=== PATIENT | male | born 1980 | race Caucasian/White ===

== ENCOUNTER 2017-04-24 17:21 | Emergency (ER) | payer SELFPAY ==
[~2017-04-24] VITALS: Ht 172.7 cm; Wt 90.9 kg
[~2017-04-24 17:21] MED LIST: ACETAMINOPHEN W1 TA6 PO; ADVIL 200MG TA200 MG PO; AMOXICILLIN 50500 MG PO; ATIVAN1 MG PO; BENICAR HCT 251 TAB PO; CELEBREX; CEPHALEXIN500 M1 PO; CYMBALTA; CYMBALTA60 M1 PO; FLAGYL500 MG PO; FLEXERIL 1010 MG/TAB PO; FLEXERIL10 MG PO; LIORESAL 1010 MG/TAB PO; LORTAB 5/500 501 TAB PO; LORTAB 7.5/5001 TAB PO; NAPROSYN500 MG PO; NO HOME MEDICATIONS; NORCO 325 MG-51 TAB PO; NORCO 325 MG-7.1 TAB PO; PEN-VEE K250 MG PO; PENICILLIN V500 MG PO; PENICILLIN VK250 MG PO; PERCOCET 325 MG1 TA2 PO; SEPTRA DS 8001 TAB PO; ULTRAM 50MG TAB50 MG PO; ULTRAM ER100 MG PO; ULTRAM100 MG PO; ULTRAM50 MG PO; VICODIN 5/5001 UDTAB PO; XANAX 0.5MG0.5 MG PO; XANAX 1MG1 MG PO; XANAX0.25 MG PO; XANAX1 MG PO; [UNRECOGNIZED DRUG - OTHER]
[2017-04-24 17:23] VITALS: TEMP 97.8
[2017-04-24] MEDS ORDERED: LIORESAL 1010 MG/TAB PO (17:26)
[2017-04-24] MEDS ORDERED: ULTRAM 50MG TAB50 MG PO (19:52)
[2017-04-24 20:16] VITALS: BP 135/89; PULSE 65
== END 2017-04-24 20:13 | disposition home or self-care (01) ==
LOC: COL.ER 17:21
DX: S83.91XA Sprain of unspecified site of right knee, initial encounter (principal); W19.XXXA Unspecified fall, initial encounter; Y92.000 Kitchen of unspecified non-institutional (private) residence as the place of occurrence of the external cause

== ENCOUNTER 2019-07-07 08:49 | Emergency (ER) | payer SELFPAY ==
[~2019-07-07] VITALS: Ht 170.2 cm; Wt 90.9 kg
[2019-07-07 09:35] VITALS: BP 156/85; PULSE 68; TEMP 97.8
== END 2019-07-07 09:35 | disposition home or self-care (01) ==
LOC: COL.ER 08:49
DX: S83.91XA Sprain of unspecified site of right knee, initial encounter (principal); X50.1XXA Overexertion from prolonged static or awkward postures, initial encounter
CPT/HCPCS: L1846

== ENCOUNTER 2019-07-15 17:07 | Emergency (ER) | payer SELFPAY ==
[~2019-07-15] VITALS: Ht 170.2 cm; Wt 90.9 kg
[2019-07-15 17:19] VITALS: BP 145/87; TEMP 97.8
[2019-07-15 18:36] VITALS: PULSE 86
== END 2019-07-15 18:37 | disposition home or self-care (01) ==
LOC: COL.ER 17:07
DX: S83.91XA Sprain of unspecified site of right knee, initial encounter (principal); F41.9 Anxiety disorder, unspecified; F17.210 Nicotine dependence, cigarettes, uncomplicated; Z88.4 Allergy status to anesthetic agent; X50.1XXA Overexertion from prolonged static or awkward postures, initial encounter

== ENCOUNTER 2019-07-30 15:28 | Emergency (ER) | payer SELFPAY ==
[~2019-07-30] VITALS: Ht 170.2 cm; Wt 90.9 kg
[2019-07-30] MEDS ORDERED: NORVASC 10MG10 MG PO (15:40)
[2019-07-30] MEDS ORDERED: LIDODERM 5% PATC1 EA TP (15:52)
[2019-07-30] MEDS ORDERED: FLEXERIL 1010 MG/TAB PO ×3 (15:52→17:33)
[2019-07-30] MEDS ORDERED: PREDNISONE20 MG PO (17:28)
[2019-07-30 17:50] VITALS: BP 133/80; PULSE 69; TEMP 98.2
== END 2019-07-30 17:50 | disposition home or self-care (01) ==
LOC: COL.ER 15:28
DX: R07.89 Other chest pain (principal); I10 Essential (primary) hypertension; F17.210 Nicotine dependence, cigarettes, uncomplicated
CPT/HCPCS: J7512

== ENCOUNTER 2019-08-07 22:55 | Emergency (ER) | payer SELFPAY ==
[~2019-08-07] VITALS: Wt 90.9 kg
[~2019-08-07 22:55] MED LIST changes: +LIDODERM 5% PATC1 EA TP; +NORVASC 10MG10 MG PO; +PREDNISONE20 MG PO
[2019-08-07 23:15] VITALS: BP 138/84; PULSE 78; TEMP 98.4
== END 2019-08-07 23:45 | disposition left against medical advice (07) ==
LOC: COL.ER 22:55
DX: R06.02 Shortness of breath (principal)

== ENCOUNTER 2019-08-10 17:37 | Emergency (ER) | payer SELFPAY ==
[~2019-08-10] VITALS: Ht 170.2 cm; Wt 90.9 kg
[2019-08-10 17:54] VITALS: TEMP 98.5
[2019-08-10] MEDS ORDERED: ATARAX 25MG25 MG/TAB PO (19:20)
[2019-08-10] MEDS ORDERED: ATIVAN 0.50.5 MG/TAB PO (19:21)
[2019-08-10 19:45] VITALS: BP 139/84; PULSE 81
== END 2019-08-10 19:45 | disposition home or self-care (01) ==
LOC: COL.ER 17:37
DX: F41.0 Panic disorder [episodic paroxysmal anxiety] (principal); I10 Essential (primary) hypertension; F32.9 Major depressive disorder, single episode, unspecified; F43.10 Post-traumatic stress disorder, unspecified; F17.210 Nicotine dependence, cigarettes, uncomplicated

== ENCOUNTER 2019-08-12 12:51 | Emergency (ER) | payer SELFPAY ==
[~2019-08-12] VITALS: Ht 170.2 cm; Wt 90.9 kg
[~2019-08-12 12:51] MED LIST changes: +ATARAX 25MG25 MG/TAB PO; +ATIVAN 0.50.5 MG/TAB PO
[2019-08-12 12:57] VITALS: BP 130/91; TEMP 98.7
[2019-08-12] MEDS ORDERED: VISTARIL 2525 MG/CAP PO (13:41)
[2019-08-12 13:57] VITALS: PULSE 82
== END 2019-08-12 13:57 | disposition home or self-care (01) ==
LOC: COL.ER 12:51
DX: F41.9 Anxiety disorder, unspecified (principal); F17.210 Nicotine dependence, cigarettes, uncomplicated

== ENCOUNTER 2019-08-22 21:41 | Emergency (ER) | payer SELFPAY ==
[~2019-08-22] VITALS: Ht 170.2 cm; Wt 90.9 kg
[~2019-08-22 21:41] MED LIST changes: +VISTARIL 2525 MG/CAP PO
[2019-08-22 21:47] VITALS: BP 137/88; TEMP 98.3
[2019-08-22 22:33] VITALS: PULSE 68
== END 2019-08-22 22:33 | disposition home or self-care (01) ==
LOC: COL.ER 21:41
DX: F41.9 Anxiety disorder, unspecified (principal); F41.0 Panic disorder [episodic paroxysmal anxiety]

== ENCOUNTER 2019-09-05 16:06 | Emergency (ER) | payer SELFPAY ==
[~2019-09-05] VITALS: Ht 170.2 cm; Wt 90.9 kg
[2019-09-05 16:08] VITALS: BP 138/82; PULSE 80; TEMP 98.3
[2019-09-05 16:50] LABS: BASO # 0.1 (0.0-0.2); BASO % 0.7 % (0.0-2.0); EOS # 0.3 (0.0-0.7); EOS % 4.1 % (0-4.0); GRAN % 60.4 % (42.2-75.2); HEMATOCRIT 44.5 % (42.0-52.0); HEMOGLOBIN 15.4 g/dl (13.5-18.0); LYMPH # 2.3 (1.2-3.4); LYMPH % 26.9 % (20.0-51.0); MEAN CELL VOLUME 91 fl (80.0-100.0); MEAN CORPUSCULAR HEMOGLOBIN 32 pg (27.0-31.0); MEAN CORPUSCULAR HGB CONC 35 g/dl (33.0-37.0); MEAN PLATELET VOLUME 10.7 fl (7.4-10.4); MONO # 0.6 (0.1-0.6); MONO % 7.5 % (1.7-9.3); PLATELET COUNT 214 K/mm3 (130-400); RED BLOOD COUNT 4.87 M/mm3 (4.20-5.60); REDCELL DISTRIBUTION WIDTH-CV 12.7 % (11.5-14.5)
[2019-09-05 17:15] LABS: ERYTHROCYTE SEDIMENTATION RATE 1 mm/hr (0-15)
== END 2019-09-05 17:42 | disposition home or self-care (01) ==
LOC: COL.ER 16:06
PROVIDERS: Family Medicine
DX: S76.012A Strain of muscle, fascia and tendon of left hip, initial encounter (principal); I10 Essential (primary) hypertension; F41.9 Anxiety disorder, unspecified; X50.9XXA Other and unspecified overexertion or strenuous movements or postures, initial encounter

== ENCOUNTER 2019-09-22 22:19 | Emergency (ER) | payer SELFPAY ==
[~2019-09-22] VITALS: Ht 170.2 cm; Wt 90.9 kg
[2019-09-22 22:27] VITALS: BP 167/86; TEMP 98.2
[2019-09-22] MEDS ORDERED: ULTRAM 50MG TAB50 MG PO (23:29)
[2019-09-22 23:38] VITALS: PULSE 70
== END 2019-09-22 23:38 | disposition home or self-care (01) ==
LOC: COL.ER 22:19
DX: M25.512 Pain in left shoulder (principal); Z87.828 Personal history of other (healed) physical injury and trauma; X50.0XXA Overexertion from strenuous movement or load, initial encounter

== ENCOUNTER 2019-09-29 12:19 | Emergency (ER) | payer SELFPAY ==
[~2019-09-29] VITALS: Ht 170.2 cm; Wt 90.9 kg
[2019-09-29] MEDS ORDERED: ATARAX 25MG25 MG/TAB (12:25)
[2019-09-29 13:51] VITALS: BP 142/83; PULSE 70; TEMP 97.3
== END 2019-09-29 14:22 | disposition home or self-care (01) ==
LOC: COL.ER 12:19
DX: F41.9 Anxiety disorder, unspecified (principal); F17.210 Nicotine dependence, cigarettes, uncomplicated

== ENCOUNTER 2019-10-12 08:52 | Emergency (ER) | payer SELFPAY ==
[~2019-10-12] VITALS: Ht 170.2 cm; Wt 90.9 kg
[~2019-10-12 08:52] MED LIST changes: +ATARAX 25MG25 MG/TAB
[2019-10-12 08:58] VITALS: TEMP 98.2
[2019-10-12 09:14] LABS: COLLECTION METHOD CLEAN CATCH
[2019-10-12 09:21] LABS: MUCOUS Present /lpf; PH 7 (5-8); SQUAMOUS EPITHELIAL None Seen /hpf; URINE APPEARANCE Clear; URINE BACTERIA Rare /hpf; URINE BILIRUBIN Negative (NEGATIVE); URINE BLOOD Negative (NEGATIVE); URINE COLOR Yellow; URINE GLUCOSE Negative (NEGATIVE); URINE KETONE Negative (NEGATIVE); URINE LEUKOCYTE ESTERASE Negative (NEGATIVE); URINE NITRATE Negative (NEGATIVE); URINE PROTEIN(semi-quant) 1+ (NEGATIVE); URINE RBC 0-2 /hpf; URINE UROBILINOGEN Negative (NEGATIVE)
[2019-10-12 09:47] LABS: BASO % 0.3 % (0.0-2.0); EOS # 0.1 (0.0-0.7); GRAN # 10.3 (1.4-6.5); HEMATOCRIT 46.3 % (42.0-52.0); HEMOGLOBIN 16.1 g/dl (13.5-18.0); LYMPH # 1.9 (1.2-3.4); LYMPH % 14.4 % (20.0-51.0); MEAN CELL VOLUME 92 fl (80.0-100.0); MEAN CORPUSCULAR HEMOGLOBIN 32 pg (27.0-31.0); MEAN CORPUSCULAR HGB CONC 35 g/dl (33.0-37.0); MEAN PLATELET VOLUME 10.8 fl (7.4-10.4); MONO # 0.9 (0.1-0.6); MONO % 6.8 % (1.7-9.3); PLATELET COUNT 246 K/mm3 (130-400); RED BLOOD COUNT 5.06 M/mm3 (4.20-5.60); REDCELL DISTRIBUTION WIDTH-CV 13.2 % (11.5-14.5)
[2019-10-12 09:55] LABS: ALBUMIN 4.1 gm/dL (3.5-5.0); BILIRUBIN,TOTAL 0.5 mg/dL (0.0-1.0); CALCIUM 9.2 mg/dL (8.4-10.2); CREATININE, serum 0.82 (0.66-1.25); POTASSIUM 4.1 mmol/L (3.4-5.0); TOTAL PROTEIN 6.7 gm/dL (6.4-8.2)
[2019-10-12 14:00] VITALS: BP 136/85; PULSE 73
== END 2019-10-12 14:00 | disposition home or self-care (01) ==
LOC: COL.ER 08:52
PROVIDERS: Emergency Medicine
DX: R10.30 Lower abdominal pain, unspecified (principal); F17.210 Nicotine dependence, cigarettes, uncomplicated
CPT/HCPCS: J1885; J2405; J7030

== ENCOUNTER 2019-12-02 17:19 | Emergency (ER) | payer SELFPAY ==
[~2019-12-02] VITALS: Ht 170.2 cm; Wt 90.9 kg
[2019-12-02 17:30] VITALS: TEMP 97.5
[2019-12-02 18:17] VITALS: PULSE 78
== END 2019-12-02 18:16 | disposition home or self-care (01) ==
LOC: COL.ER 17:19
DX: S06.0X0A Concussion without loss of consciousness, initial encounter (principal); R40.2412 Glasgow coma scale score 13-15, at arrival to emergency department; W00.0XXA Fall on same level due to ice and snow, initial encounter

== ENCOUNTER 2019-12-24 11:11 | Emergency (ER) | payer SELFPAY ==
[~2019-12-24] VITALS: Ht 170.2 cm; Wt 90.9 kg
[2019-12-24 11:23] VITALS: BP 121/83; PULSE 72; TEMP 98.4
== END 2019-12-24 12:38 | disposition left against medical advice (07) ==
LOC: COL.ER 11:11
DX: M25.562 Pain in left knee (principal)

== ENCOUNTER 2020-01-17 18:39 | Emergency (ER) | payer SELFPAY ==
[~2020-01-17] VITALS: Ht 170.2 cm; Wt 90.9 kg
[2020-01-17 18:47] VITALS: BP 176/84; PULSE 66; TEMP 97.6
[2020-01-17] MEDS ORDERED: NORCO 325 MG-51 TAB PO (19:06)
== END 2020-01-17 19:11 | disposition home or self-care (01) ==
LOC: COL.ER 18:39
DX: M25.571 Pain in right ankle and joints of right foot (principal); M25.572 Pain in left ankle and joints of left foot; G89.29 Other chronic pain

== ENCOUNTER 2020-03-04 19:43 | Emergency (ER) | payer SELFPAY ==
[~2020-03-04] VITALS: Ht 170.2 cm; Wt 90.9 kg
[2020-03-04 19:52] VITALS: BP 180/98; TEMP 98.4
[2020-03-04 20:33] VITALS: PULSE 61
== END 2020-03-04 20:35 | disposition home or self-care (01) ==
LOC: COL.ER 19:43
DX: H16.133 Photokeratitis, bilateral (principal); I10 Essential (primary) hypertension; F17.210 Nicotine dependence, cigarettes, uncomplicated; Z79.899 Other long term (current) drug therapy

== ENCOUNTER 2020-05-12 12:57 | Emergency (ER) | payer SELFPAY ==
[~2020-05-12] VITALS: Ht 170.2 cm; Wt 84.1 kg
[2020-05-12 13:07] VITALS: TEMP 98.3
[2020-05-12] MEDS ORDERED: LIORESAL 1010 MG/TAB PO (14:53)
[2020-05-12] MEDS ORDERED: PERCOCET 325 MG1 TA2 PO (14:53)
[2020-05-12 15:05] VITALS: PULSE 67
== END 2020-05-12 15:05 | disposition home or self-care (01) ==
LOC: COL.ER 12:57
DX: G89.29 Other chronic pain (principal); M54.5 Low back pain; F17.210 Nicotine dependence, cigarettes, uncomplicated

== ENCOUNTER 2021-05-01 15:15 | Emergency (ER) | payer BC ==
[~2021-05-01] VITALS: Ht 170.2 cm; Wt 81.8 kg
[2021-05-01 15:21] VITALS: TEMP 98
[2021-05-01 16:17] LABS: BASO % 0.5 % (0.0-2.0); EOS # 0.3 (0.0-0.7); EOS % 3.5 % (0-4.0); GRAN % 64.2 % (42.2-75.2); HEMATOCRIT 38.2 % (42.0-52.0); HEMOGLOBIN 13.3 g/dl (13.5-18.0); LYMPH % 25.1 % (20.0-51.0); MEAN CELL VOLUME 88 fl (80.0-100.0); MEAN CORPUSCULAR HEMOGLOBIN 31 pg (27.0-31.0); MEAN CORPUSCULAR HGB CONC 35 g/dl (33.0-37.0); MONO # 0.5 (0.1-0.6); MONO % 6.3 % (1.7-9.3); PLATELET COUNT 233 K/mm3 (130-400); RED BLOOD COUNT 4.34 M/mm3 (4.20-5.60); REDCELL DISTRIBUTION WIDTH-CV 12.7 % (11.5-14.5)
[2021-05-01 16:19] LABS: ALBUMIN 3.5 gm/dL (3.5-5.0); BILIRUBIN,TOTAL 0.4 mg/dL (0.0-1.0); CALCIUM 8.5 mg/dL (8.4-10.2); CREATININE, serum 0.74 (0.66-1.25); POTASSIUM 3.6 mmol/L (3.4-5.0); TOTAL PROTEIN 5.9 gm/dL (6.4-8.2)
[2021-05-01 17:46] LABS: COLLECTION METHOD CLEAN CATCH
[2021-05-01 17:56] LABS: PH 6 (5-8); SQUAMOUS EPITHELIAL None Seen /hpf; URINE APPEARANCE Clear; URINE BACTERIA None Seen /hpf; URINE BILIRUBIN Negative (NEGATIVE); URINE BLOOD Negative (NEGATIVE); URINE COLOR Yellow; URINE GLUCOSE Negative (NEGATIVE); URINE KETONE Negative (NEGATIVE); URINE LEUKOCYTE ESTERASE Negative (NEGATIVE); URINE NITRATE Negative (NEGATIVE); URINE PROTEIN(semi-quant) Negative (NEGATIVE); URINE RBC 0-2 /hpf; URINE UROBILINOGEN >=4.0 mg/dL (NEGATIVE)
[2021-05-01 18:15] VITALS: BP 157/79; PULSE 88
== END 2021-05-01 18:15 | disposition home or self-care (01) ==
LOC: COL.ER 15:15
PROVIDERS: Nurse Practitioner
DX: R53.83 Other fatigue (principal); M62.81 Muscle weakness (generalized); R11.0 Nausea; R19.7 Diarrhea, unspecified; R51.9 Headache, unspecified; R42 Dizziness and giddiness
CPT/HCPCS: J2060; J7030

== ENCOUNTER 2023-01-24 17:07 | Emergency (ER) | payer SELFPAY ==
[~2023-01-24] VITALS: Ht 170.2 cm; Wt 84.1 kg
[2023-01-24 17:13] VITALS: BP 156/103; TEMP 98.2
[2023-01-24 18:43] LABS: BASO # 0.1 K/mm3 (0.0-0.2); BASO % 0.5 % (0.0-2.0); EOS # 0.2 K/mm3 (0.0-0.7); EOS % 1.9 % (0.0-4.0); GRAN # 6.7 K/mm3 (1.4-6.5); GRAN % 68.5 % (42.2-75.2); HEMATOCRIT 40.5 % (42.0-52.0); HEMOGLOBIN 14.3 g/dl (13.5-18.0); LYMPH # 2.3 K/mm3 (1.2-3.4); LYMPH % 22.8 % (20.0-51.0); MEAN CELL VOLUME 86 fl (80.0-100.0); MEAN CORPUSCULAR HEMOGLOBIN 30 pg (27-31); MEAN CORPUSCULAR HGB CONC 35 g/dl (33.0-37.0); MEAN PLATELET VOLUME 10.7 fl (7.4-10.4); MONO # 0.6 K/mm3 (0.1-0.6); MONO % 5.9 % (1.7-9.3); PLATELET COUNT 209 K/mm3 (130-400); RED BLOOD COUNT 4.72 M/mm3 (4.20-5.60); REDCELL DISTRIBUTION WIDTH-CV 12.3 % (11.5-14.5)
[2023-01-24 19:00] LABS: ALBUMIN 4.1 gm/dL (3.5-5.0); BILIRUBIN,TOTAL 0.4 mg/dL (0.2-1.2); C-REACTIVE PROTEIN 0.18 mg/dL (0.00-0.50); CALCIUM 9.2 mg/dL (8.4-10.2); CREATININE, serum 0.86 mg/dL (0.72-1.25); POTASSIUM 4.1 mmol/L (3.5-4.5); TOTAL PROTEIN 6.8 gm/dL (6.2-8.1)
[2023-01-24 19:33] VITALS: PULSE 68
== END 2023-01-24 19:38 | disposition home or self-care (01) ==
LOC: COL.ER 17:07
PROVIDERS: Nurse Practitioner
DX: R11.2 Nausea with vomiting, unspecified (principal); F17.210 Nicotine dependence, cigarettes, uncomplicated; Z28.310 Unvaccinated for COVID-19

== ENCOUNTER 2024-06-01 14:10 | Emergency (ER) | payer SELFPAY ==
[~2024-06-01] VITALS: Ht 167.6 cm; Wt 77.3 kg
[~2024-06-01 14:10] MED LIST changes: +CIPRODEX OT; +CLEOCIN HCL300 MG PO
[2024-06-01 14:16] VITALS: TEMP 97.8
[2024-06-01 16:05] VITALS: BP 138/76; PULSE 50
== END 2024-06-01 16:05 | disposition home or self-care (01) ==
LOC: COL.ER 14:10
DX: S09.90XA Unspecified injury of head, initial encounter (principal); F17.200 Nicotine dependence, unspecified, uncomplicated; W20.8XXA Other cause of strike by thrown, projected or falling object, initial encounter; Y92.89 Other specified places as the place of occurrence of the external cause; Y99.0 Civilian activity done for income or pay